=== PATIENT | female | born 1980 | race Caucasian/White ===

== ENCOUNTER → 2020-11-25 11:27 | Outpatient (CLI) | payer OTHER, SELFPAY ==
--- NOTE | ~2020-11-25 | MM_ITS ---
EXAMINATION: MM screening [facility] BI w ellie HISTORY: Screening mammogram TECHNIQUE: Craniocaudal and mediolateral oblique 3-D tomosynthesis images were obtained and synthetic 2-D images were generated. CAD analysis was submitted and interpreted. COMPARISON: No prior mammogram is available for comparison at this institution. BREAST PARENCHYMAL COMPOSITION: There are scattered areas of fibroglandular density. FINDINGS: There is no evidence of suspicious mass, calcification, or architectural distortion to sugg est malignancy in either breast. There has been no suspicious interval change. IMPRESSION: 1. No mammographic evidence of malignancy. 2. Recommend routine screening mammography in one year. BI-RADS Category 1: Negative Reviewed, dictated and finalized at location A. [employer] [facility]
== END ==
PROVIDERS: Visit Provider Nurse Practitioner
DX: Z12.31 Encounter for screening mammogram for malignant neoplasm of breast (principal)
CPT/HCPCS: 77063; 77067

== ENCOUNTER → 2022-02-01 14:58 | Outpatient (CLI) | payer OTHER, SELFPAY ==
--- NOTE | ~2022-02-01 | MM_ITS ---
EXAMINATION: MM screening [facility] BI w ellie HISTORY: Screening mammogram TECHNIQUE: Craniocaudal and mediolateral oblique 3-D tomosynthesis images were obtained and synthetic 2-D images were generated. CAD analysis was submitted and interpreted. COMPARISON: November 25, 2020 bilateral screening mammogram BREAST PARENCHYMAL COMPOSITION: There are scattered areas of fibroglandular density. FINDINGS: Approximately 3.6 x 7.9 mm circumscribed mass is noted in the posterior mid to upper outer left breast. Diagnostic left mammogram and targeted left breast ultrasound examination are recommende d. Otherwise there is no evidence of suspicious mass, calcification, or architectural distortion to sugg est malignancy in either breast. There has been no other suspicious interval change. IMPRESSION: 1. 3.6 x 7.9 mm circumscribed mass in posterior mid to upper outer left breast 2. Diagnostic mammogram and targeted left breast ultrasound examination are recommended BI-RADS Category 0: Incomplete: Needs additional imaging evaluation. Reviewed, dictated and finalized at location A. IMPRESSION: 1. 3.6 x 7.9 mm circumscribed mass in posterior mid to upper outer left breast 2. Diagnostic mammogram and targeted left breast ultrasound examination are rec ommended BI-RADS Category 0: Incomplete: Needs additional imaging evaluation.
== END ==
PROVIDERS: PCP Obstetrics & Gynecology Gynecology; Visit Provider Obstetrics & Gynecology Gynecology
DX: Z12.31 Encounter for screening mammogram for malignant neoplasm of breast (principal); R92.8 Other abnormal and inconclusive findings on diagnostic imaging of breast
CPT/HCPCS: 77063; 77067

== ENCOUNTER → 2022-02-13 08:47 | Outpatient (CLI) | payer OTHER, SELFPAY ==
--- NOTE | ~2022-02-13 | MMUS_ITS ---
EXAMINATION: MM diagnostic radha LT w ellie, US breast LT limited HISTORY: 3. 67.9 mm circumscribed mass in posterior mid to upper outer left breast on February 01, 2022 screening mammogram TECHNIQUE: Additional 3-D tomosynthesis images of the left breast were performed and synthetic 2-D im ages were generated. CAD analysis was submitted and interpreted. High resolution targeted posterior o uter left breast ultrasound was performed. COMPARISON: 02/01/2022 bilateral screening mammogram FINDINGS: MAMMOGRAPHIC FINDINGS: There is a 4.8 x 8 mm circumscribed opacity with suggestion of a radiolucent fatty hilus, likely a ly mph node, in the posterior mid outer left breast. ULTRASOUND: Approximately 5 x 8 mm benign-appearing circumscribed probable lymph node is identified at 3-4:00 12 cm from the nipple. No suspicious shadowing is detected. No significant abnormality is noted. IMPRESSION: 1. Benign probable lymph node in the posterior outer mid left breast 2. Routine annual mammographic screening is recommended BI-RADS Category 2: Benign finding(s). Reviewed, dictated and finalized at location A. IMPRESSION: 1. Benign probable lymph node in the posterior outer mid left breast 2. Routine annual mammographic screening is recommended BI-RADS Category 2: Benign finding(s).
== END ==
PROVIDERS: PCP Internal Medicine; Visit Provider Obstetrics & Gynecology Gynecology
DX: R92.8 Other abnormal and inconclusive findings on diagnostic imaging of breast (principal)
CPT/HCPCS: 76642; 77061; 77065; G0279

== ENCOUNTER 2022-10-29 18:54 | Emergency (ER) | payer OTHER, SELFPAY ==
--- NOTE | 2022-10-29 18:55 | ED.URI ---
HPI - URI/Sore Throat General Chief Complaint: Upper Respiratory Infection Stated Complaint: chest congestion Time Seen by Provider: 10/29/22 18:55 Source: patient Mode of arrival: ambulatory Limitations: no limitations History of Present Illness HPI Narrative: Fatmata is a 41-year-old female patient presenting to clinic today with complaints of chest congestion and runny nose times 5 days. She reports no fever or chills. Is having a productive cough with some greenish brown phlegm at times. She denies being a smoker. Denies any history of asthma or COPD but does get bronchitis frequently. She does report some mild shortness of breath at times. States she does have some burning in her chest when coughing. MD elicited complaint: sore throat and nasal congestion Related Data Home Medications Medication Instructions Recorded Confirmed metformin 500 mg tablet,extended 1,000 mg PO BID 10/29/22 10/29/22 release 24 hr Allergies Allergy/AdvReac Type Severity Reaction Status Date / Time acetaminophen AdvReac Mild Vomiting Verified 10/29/22 19:09 ELETRIPTAN HYDROBROMIDE AdvReac Mild VOMITING Uncoded 10/29/22 19:09 HYDROCODONE BIT AdvReac Mild VOMITING Uncoded 10/29/22 19:09 Review of Systems Review of Systems: Pertinent positives per HPI. Patient denies any fever, chills, rash, headache, visual changes, dizziness, chest pain, palpitations, nausea, vomiting, diarrhea, constipation, abdominal pain, or any urinary issues. PMFSH Comments At the time of my signature, I reviewed and agree with the nursing past medical, surgical, social, and family history. There is no relevant family history pertinent to the patient complaint. Exam Narrative: General: Well-developed, well nourished, in no apparent distress Head: Normocephalic, atraumatic Eyes: Pupils equally round and reactive to light bilaterally, EOM intact, sclera and conjunctive clear, no discharge, lids normal Ears: TMs intact and clear, ear canals clear, no drainage, grossly hearing normal. Nose: Nares patent, clear nasal discharge, no inflammation, no sinus tenderness. Mouth: Oral pharynx without lesions or masses, good dentition, MMM. Postnasal drip Neck: Supple, trachea midline, no enlargement of anterior or posterior cervical nodes, no thyroid masses or goiter palpable. Cardio: Regular rate and rhythm, s1 and s2 normal, no murmur appreciated. Resp: Diminished in the bases with faint wheezing, no rhonchi, rales, or rubs Course Course Emergency Course: Portions of this record may have been created with voice recognition software. Level of Care: Express Care Visit Vital Signs Vital signs: Vital signs reviewed MDM - URI/Sore Throat MDM Narrative Medical decision making narrative: At the time of visit patient is resting comfortably on the exam table. I suspect patient has bronchitis. Prescription for prednisone and inhaler was sent to the pharmacy. Supportive measures were discussed with the patient she voiced understanding discharge instructions agrees to treatment plan Differential Diagnosis Differential diagnosis: Likely upper respiratory infection, otitis media, sinusitis, viral infection, bronchitis, influenza, pharyngitis and other (COVID) Discharge Plan Discharge Clinical Impression: Bronchitis Patient Disposition: Home, Self-Care Condition: Stable Instructions: Antibiotic Form, Acute Bronchitis (ED) Additional Instructions: Take prescription medications only as prescribed-albuterol inhaler and prednisone Increase fluids and stay well hydrated Tylenol/motrin for pain/fever Flonase and OTC antihistamines as directed Vicks vapor rub to open sinuses Sinus rinses for congestion Cepacol spray, cough drops, throat lozenges, warm tea with honey/lemon, gargle salt water to soothe throat BRAT diet for diarrhea Clear liquids x 24 hours then advance as tolerated for nausea/vomiting Go to the ED if you develop a worsening in
[2022-10-29 19:08] VITALS: BP 151/86; PULSE 89; RESP 18; TEMP 37.3; O2SAT 100
== END 2022-10-29 19:12 | disposition home or self-care (01) ==
PROVIDERS: Emergency Provider Nurse Practitioner Family; PCP Internal Medicine
DX: J40 Bronchitis, not specified as acute or chronic (principal); E28.2 Polycystic ovarian syndrome
CPT/HCPCS: 99213; G0463

== ENCOUNTER → 2023-05-13 16:20 | Outpatient (CLI) | payer OTHER, SELFPAY ==
--- NOTE | ~2023-05-13 | MM_ITS ---
EXAMINATION: MM screening [facility] BI w ellie HISTORY: Screening mammogram TECHNIQUE: Craniocaudal and mediolateral oblique 3-D tomosynthesis images were obtained and synthetic 2-D images were generated. CAD analysis was submitted and interpreted. COMPARISON: 02/13/2022 diagnostic left mammogram and limited left breast ultrasound examination 02/01/2022, 11/25/2020 bilateral screening mammogram examinations BREAST PARENCHYMAL COMPOSITION: The breasts are almost entirely fatty. FINDINGS: There is no evidence of suspicious mass, calcification, or architectural distortion to sugg est malignancy in either breast. There has been no suspicious interval change. IMPRESSION: 1. No mammographic evidence of malignancy. 2. Recommend routine screening mammography in one year. BI-RADS Category 1: Negative Reviewed, dictated and finalized at location A.
== END ==
PROVIDERS: PCP Obstetrics & Gynecology Gynecology; Visit Provider Nurse Practitioner
DX: Z12.31 Encounter for screening mammogram for malignant neoplasm of breast (principal)
CPT/HCPCS: 77063; 77067

== ENCOUNTER 2023-06-23 15:24 | Outpatient (CLI) | payer OTHER, SELFPAY ==
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
== END 2023-06-23 15:25 | disposition home or self-care (01) ==
PROVIDERS: PCP Physician Assistant Medical; Visit Provider Physician Assistant Medical
DX: L03.115 Cellulitis of right lower limb (principal); M25.561 Pain in right knee; M17.11 Unilateral primary osteoarthritis, right knee; M25.461 Effusion, right knee
CPT/HCPCS: 73700

== ENCOUNTER 2023-09-16 11:30 | Emergency (ER) | payer OTHER, SELFPAY ==
--- NOTE | 2023-09-16 11:57 | ED.URI ---
HPI - URI/Sore Throat General Chief Complaint: Upper Respiratory Infection Stated Complaint: cough,wheezing Time Seen by Provider: 09/16/23 11:43 Source: patient Mode of arrival: ambulatory Limitations: no limitations History of Present Illness HPI Narrative: Fatmata is a 42-year-old female patient presenting to clinic today with complaints of cough and wheezing x3 days. She reports that her daughter was recently treated for pneumonia and states that usually when her daughter gets sick she gets bronchitis afterwards. She denies any fever or chills. Is having a productive cough with some yellow phlegm. No chest pain or shortness of breath. MD elicited complaint: cough, nasal congestion and other (Wheezing) Related Data Home Medications Medication Instructions Recorded Confirmed levonorgestrel 17.5 mcg/24 hrs See Rx Instructions .Route .COMPLEX 09/16/23 09/16/23 (5yrs) 19.5mg intrauterine device (Kyleena) Allergies Allergy/AdvReac Type Severity Reaction Status Date / Time acetaminophen AdvReac Intermediate Vomiting Verified 09/16/23 12:02 metronidazole [From Flagyl] AdvReac Intermediate Vomiting Verified 09/16/23 12:02 ELETRIPTAN HYDROBROMIDE AdvReac Intermediate VOMITING Uncoded 09/16/23 12:02 HYDROCODONE BIT AdvReac Intermediate VOMITING Uncoded 09/16/23 12:02 Review of Systems Review of Systems: Pertinent positives per HPI. Patient denies any fever, chills, rash, headache, visual changes, dizziness, shortness of breath, chest pain, palpitations, nausea, vomiting, diarrhea, constipation, abdominal pain, or any urinary issues. [facility] Past Medical History Medical History Anemia Migraines Surgical History Surgical History History of adenoidectomy History of loop electrosurgical excision procedure (LEEP) 02/28/23 History of placement of ear tubes History of tonsillectomy Family History Family History Other Cancer Heart disease Grandparent Cancer Diabetes mellitus Mother Diabetes mellitus Hypertension Father Hypertension Social History Social History Smoking status: Never smoker Alcohol intake: never Substance use: never Substance use type: does not use Lack of Transportation: No Lack of Food: Never True Current Housing: I Have Housing Concerned About Future Housing: No Difficulty Paying Gas/Electric Bills: No Difficulty Paying for Meds: No Currently Unemployed: No Education: Bachelor's Degree Difficulty w/ Childcare or Family Care: No Living arrangements: with family Occupation/Education: occupation Gender identity (if verbalized by the patient): Female Sexual Orientation (if Verbalized by the Patient): Straight or Heterosexual Comments At the time of my signature, I reviewed and agree with the nursing past medical, surgical, social, and family history. There is no relevant family history pertinent to the patient complaint. Exam Narrative: General: Well-developed, well nourished, in no apparent distress Head: Normocephalic, atraumatic Eyes: Pupils equally round and reactive to light bilaterally, EOM intact, sclera and conjunctive clear, no discharge, lids normal Ears: TMs intact and clear, ear canals clear, no drainage, grossly hearing normal. Nose: Nares patent, no discharge, no inflammation, no sinus tenderness. Mouth: Oral pharynx without lesions or masses, good dentition, MMM. Neck: Supple, trachea midline, no enlargement of anterior or posterior cervical nodes, no thyroid masses or goiter palpable. Cardio: Regular rate and rhythm, s1 and s2 normal, no murmur appreciated. Resp: Expiratory wheezing, no rhonchi, rales, or rubs Course Course Emergency Course: Portions of this record may have been cre
[2023-09-16 12:10] VITALS: BP 164/88; PULSE 81; RESP 18; TEMP 36.1; O2SAT 100
== END 2023-09-16 12:22 | disposition home or self-care (01) ==
PROVIDERS: Emergency Provider Nurse Practitioner Family; PCP Physician Assistant Medical
DX: J20.9 Acute bronchitis, unspecified (principal)
CPT/HCPCS: 99213; G0463

== ENCOUNTER 2025-01-03 11:28 | Emergency (ER) | payer OTHER, SELFPAY ==
--- NOTE | ~2025-01-03 | XR_ITS ---
XR chest 2V Ordering provider: Shravan Anguiano APRN History: 44 years Female with . cough x 1 month- diff taking deep breath, non smoker . Comparison: None. FINDINGS: MEDIASTINUM: The cardiac silhouette is not enlarged. LUNGS: No infiltrates, effusions or pneumothorax. OTHER: No free air under the diaphragm. IMPRESSION: No acute cardiopulmonary pathology. Reviewed, dictated and finalized at location A.
[2025-01-03 11:41] VITALS: BP 150/93; PULSE 88; RESP 20; TEMP 36.9; O2SAT 99
--- NOTE | 2025-01-03 12:01 | ED_ITS ---
HPI - URI/Sore Throat General Chief Complaint: Upper Respiratory Infection Stated Complaint: Bronchitis Symptoms Time Seen by Provider: 01/03/25 11:50 Source: patient Mode of arrival: ambulatory Limitations: no limitations History of Present Illness HPI Narrative: Fatmata is a 44-year-old female patient presenting to the clinic today with complaints of possible bronchitis. She reports she has had a nonproductive c ough for over 1 month. States that she is wheezing and having difficulty taking deep breaths at times. History of bronchitis and pneumonia in the past. She denies any fevers, chills, or body aches. She is a nonsmoker. No history of asthma or COPD. MD elicited complaint: cough Related Data Home Medications ?Medication ?Instructions ?Recorded ?Confirmed ?Last Taken ?Type levonorgestrel 17.5 mcg/24 hr (up See Rx Instructions .Route .COMPLEX 09/16/23 11/08/24 Unknown History to 5 yrs) 19.5mg intrauterine device (Kyleena) Allergies Allergy/AdvReac Type Severity Reaction Status Date / Time acetaminophen AdvReac Intermediate Vomiting Verified 01/03/25 11:45 metronidazole (From Flagyl) AdvReac Intermediate Vomiting Verified 01/03/25 11:45 ELETRIPTAN HYDROBROMIDE AdvReac Intermediate VOMITING Uncoded 01/03/25 11:45 HYDROCODONE BIT AdvReac Intermediate VOMITING Uncoded 01/03/25 11:45 Review of Systems Review of Systems: Pertinent positives per HPI. Patient denies any fever, chills, rash, headache, visual changes, dizziness, chest pain, palpitations, nausea, vomiting, diarrhea, constipation, abdominal pain, or any urinary issues. PENDING SALE TO [facility] Past Medical History Medical History (Updated 01/03/25 @ 12:43 by Shravan Anguiano APRN) Hypertension Migraines Anemia Surgical History Surgical History History of loop electrosurgical excision procedure (LEEP) 02/28/23 History of tonsillectomy History of adenoidectomy History of placement of ear tubes Family History Family History Other Cancer Heart disease Grandparent Cancer Diabetes mellitus Mother Diabetes mellitus Hypertension Father Hypertension Social History Social History (Reviewed 09/16/23 @ 11:58 by RAFAEL Patrick Smoking status: Never smoker Alcohol intake: never Substance use: never Substance use type: does not use Lack of Transportation: No Lack of Food: Never True Current Housing: I Have Housing Concerned About Future Housing: No Difficulty Paying Gas/Electric Bills: No Difficulty Paying for Meds: No Currently Unemployed: No Education: Bachelor's Degree Difficulty w/ Childcare or Family Care: No Living arrangements: with family Occupation/Education: occupation Gender identity (if verbalized by the patient): Female Sexual Orientation (if Verbalized by the Patient): Straight or Heterosexual Comments At the time of my signature, I reviewed and agree with the nursing past medical, surgical, social, and family history. There is no relevant family history pertinent to the patient complaint. Exam Narrative: General: Well-developed, obese, in no apparent distress Head: Normocephalic, atraumatic Eyes: Pupils equally round and reactive to light bilaterally, EOM intact, sclera and conjunctive clear, no discharge, lids normal Ears: TMs intact and clear, ear canals clear, no drainage, grossly hearing normal. Nose: Nares patent, no discharge, no inflammation, no sinus tenderness. Mouth: Oral pharynx without lesions or masses, good dentition, MMM. Neck: Supple, trachea midline, no enlargement of anterior or posterior cervical nodes, no thyroid masses or goiter palpable. Cardio: Regular rate and rhythm, s1 and s2 normal, no murmur appreciated. Resp: Inspiratory rhonchi with expiratory wheezing, no rales or rubs Course Course Emergency Course: Portions of this record may have been created with voice recognition software. Level of Care: Express Care Visit Vital Signs Vital signs: Vital Signs Temperature 36.9 C 01/03/25 11:41 Pulse Rate 88 01/03/25 11:41 Respiratory Rate 20 01/03/25 11:41 Blood Pressure 150/93 H 01/03/25 11:41 Pulse Oximetry 99 01/03/25 11:41 Oxygen Delivery Room Air 01/03/25 11:41 Temperature 36.9 C 01/03/25 11:41 Pulse Rate 88 01/03/25 11:41 Respiratory Rate 20 01/03/25 11:41 Blood Pressure 150/93 H 01/03/25 11:41 Pulse Oximetry 99 01/03/25 11:41 Oxygen Delivery Room Air 01/03/25 11:41 Vital signs reviewed MDM - URI/Sore Throat MDM Narrative Medical decision making narrative: At the time of visit patient is resting comfortably on the exam table. Patient appears to be nontoxic. Diagnostics: Chest x-ray was performed was negative for any acute cardiopulmon brea process. Plan: I suspect patient has bronchitis. Prescription for azithromycin, prednisone, and albuterol inhaler was sent to the pharmacy. Supportive measures were discussed with the patient and they voiced understanding discharge instructions and agrees to treatment plan. Return precautions reviewed Differential Diagnosis Differential diagnosis: Likely upper respiratory infection, croup, otitis media, sinusitis, viral infection, bronchitis, influenza, pharyngitis and other (COVID) Imaging Data Radiologist's impression: ITS Impressions Chest X-Ray 01/03/25 12:14 IMPRESSION: No acute cardiopulmonary pathology. Discharge Plan Discharge Clinical Impression: Bronchitis Patient Disposition: Home, Self-Care Condition: Stable Instructions: Antibiotic Form, Acute Bronchitis (ED) Additional Instructions: Take prescription medications only as prescribed-prednisone, azithromycin, and albuterol inhaler Increase fluids and stay well hydrated Tylenol/motrin for pain/fever Flonase and OTC antihistamines as directed Vicks vapor rub to open sinuses Sinus rinses for congestion Cepacol spray, cough drops, throat lozenges, warm tea with honey/lemon, gargle salt water to soothe throat BRAT diet for diarrhea Clear liquids x 24 hours then advance as tolerated for nausea/vomiting Go to the ED if you develop a worsening in your condition- high fever not controlled by Tylenol or Motrin, dehydration, weakness, lethargy, shortness of breath, or chest pain. Follow up with your PCP in 3-5 days if symptoms persist. Patient Language: Armenian Prescriptions: New azithromycin 250 mg tablet See Rx Instructions .ROUTE .COMPLEX Qty: 6 0RF Rx Instructions: For 250 mg dose pack: take 500 mg today (day 1), then 250 mg for 4 days (days 2-5) prednisone 20 mg tablet 40 mg PO DAILY 5 Days Qty: 10 0RF albuterol sulfate 90 mcg/actuation HFA aerosol inhaler 2 puff inhalation Q4-6H PRN (Reason: shortness of breath or wheezing) 30 Days Qty: 8.5 0RF No Action Kyleena 17.5 mcg/24 hrs (5 yrs) 19.5 mg Intrauterine Device See Rx Instructions .ROUTE .COMPLEX Rx Instructions: 17.5 mcg intrauterinely lisinopril 10 mg tablet 10 mg PO DAILY Qty: 90 0RF Follow-up/Referrals: PHYSICIAN,STRAP CUTTER [Primary Care Provider] - Stand Alone Forms: Work/School Release IP Time of Disposition: 12:44 Quality NIHSS Nursing Documentation ED NIHSS nursing documentation: reviewed/agree
== END 2025-01-03 12:48 | disposition home or self-care (01) ==
PROVIDERS: Emergency Provider Nurse Practitioner Family
DX: J40 Bronchitis, not specified as acute or chronic (principal); I10 Essential (primary) hypertension
CPT/HCPCS: 71046; 99213; G0463